=== PATIENT | male | born 1975 | race Caucasian/White ===

== ENCOUNTER 2023-02-27 | Outpatient (REF) | payer OTHER, SELFPAY ==
[2023-02-27 10:13] LABS: Cholesterol 172 mg/dL; HDL Cholesterol 31 mg/dL; LDL Cholesterol Calculated 113 mg/dl; Triglycerides 141 mg/dL
[2023-02-27 10:52] LABS: Estimated Average Glucose 232 mg/dL; Hemoglobin A1c % 9.7 %
== END 2023-02-27 00:01 | disposition home or self-care (01) ==
LOC: HO.LAB
PROVIDERS: PCP Internal Medicine; Visit Provider Registered Nurse
DX: F33.0 Major depressive disorder, recurrent, mild (principal); F41.1 Generalized anxiety disorder; Z79.899 Other long term (current) drug therapy
CPT/HCPCS: 36415; 80061; 83036

== ENCOUNTER 2023-11-11 07:48 | Outpatient (REF) | payer OTHER, SELFPAY ==
--- NOTE | ~2023-11-11 | XR_ITS ---
EXAMINATION: XR KNEE, BILATERAL CLINICAL INFORMATION: Bilateral knee pain COMPARISON: None. TECHNIQUE: 3 views of each knee FINDINGS: Medial compartment narrowing and marginal osteophyte formation of both knees. Mild patellofemoral compartment osteoarthritis bilaterally. Small bilateral knee joint effusions. No fracture or focal osseous lesion demonstrated. XR/XR knee RT 3V IMPRESSION: Mild to moderate medial compartment and mild patellofemoral compartment osteoarthritis bilaterally with small joint effusions. Degenerative findings are most prominent in the medial compartment of the left knee. No acute osseous abnormality.
--- NOTE | ~2023-11-11 | XR_ITS ---
EXAMINATION: XR KNEE, BILATERAL CLINICAL INFORMATION: Bilateral knee pain COMPARISON: None. TECHNIQUE: 3 views of each knee FINDINGS: Medial compartment narrowing and marginal osteophyte formation of both knees. Mild patellofemoral compartment osteoarthritis bilaterally. Small bilateral knee joint effusions. No fracture or focal osseous lesion demonstrated. XR/XR knee LT 3V IMPRESSION: Mild to moderate medial compartment and mild patellofemoral compartment osteoarthritis bilaterally with small joint effusions. Degenerative findings are most prominent in the medial compartment of the left knee. No acute osseous abnormality.
== END 2023-11-11 07:49 | disposition home or self-care (01) ==
LOC: HO.HOSX 07:48
PROVIDERS: Visit Provider Orthopaedic Surgery
DX: M17.0 Bilateral primary osteoarthritis of knee (principal)
CPT/HCPCS: 73562; 99202

== ENCOUNTER 2023-11-11 09:08 | Outpatient (AMB) | payer OTHER, SELFPAY ==
--- NOTE | 2023-11-11 09:11 | MHC.OFFVIS ---
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 The patient states that his knee pains have gotten worse over the last few years in spite of continued non operative treatments. He has had cortisone injections in the past which gave him no relief. He has also tried Tylenol and anti-inflammatory medicines which gave him minimal relief. He has done physical therapy which aggravated his pain. He states that his knees will both give out several times per day. Physical Exam Const Other: Well-nourished well-developed very friendly male awake alert and oriented x3 in no acute distress Extrem Other: Bilateral lower extremity examination shows good capillary refill, no skin lesions noted, normal sensation light touch Bilateral knee examination shows minimal effusions, palpable crepitus with range of motion, pain with range of motion Results Reviewed Results Reviewed: X-rays of the patient's bilateral knee show moderate diffuse joint space narrowing, no acute bony abnormalities Assessment & Plan Assessment & Plan (1) Arthritis of left knee: Code(s): M17.12 - Unilateral primary osteoarthritis, left knee (2) Arthritis of right knee: Code(s): M17.11 - Unilateral primary osteoarthritis, right knee Plan Mr. Crawford presents with bilateral knee pains and mechanical symptoms due to degenerative joint disease. I had a lengthy discussion with the patient regarding the treatment options. He wishes to hold off on surgery for as long as possible. I agree with this plan. I did have him fitted for bilateral knee braces because of his symptoms of instability. I feel that the knee braces are a medical necessity to help prevent future falls. The patient has not gotten good relief from cortisone injections in the past. Thus, I will see whether not his insurance company will cover a viscosupplementation injection for both of his knees. I will see him back once the injections are available. Feel free to call me at any time should questions regarding his orthopedic management arise. Thank you very much for asking me to see this very friendly gentleman. I spent 22 minutes in reviewing the patient's records and imaging studies, seeing the patient and documenting in the medical record. Orders: Orders XR knee LT 3V Today M25.562 - Pain in left knee XR knee RT 3V Today M25.561 - Pain in right knee Coding Level of Care Code New Pt Level 2 (04242) Diagnoses Arthritis of left knee M17.12 Arthritis of right knee M17.11
== END 2023-11-11 09:37 | disposition home or self-care (01) ==
PROVIDERS: PCP Internal Medicine; Visit Provider Orthopaedic Surgery
DX: M17.0 Bilateral primary osteoarthritis of knee (principal)
CPT/HCPCS: 99202

== ENCOUNTER 2024-02-24 06:30 | Outpatient (REF) | payer OTHER, SELFPAY ==
[2024-02-24 07:27] LABS: Estimated Average Glucose 114 mg/dL; Hemoglobin A1c % 5.6 % (<6.0)
[2024-02-24 07:46] LABS: Cholesterol 183 mg/dL (<200); HDL Cholesterol 28 mg/dL (>40); LDL Cholesterol Calculated 111 mg/dL (<100); Triglycerides 220 mg/dL (<150)
== END 2024-02-24 06:31 | disposition home or self-care (01) ==
LOC: HO.LAB 06:30
PROVIDERS: PCP Internal Medicine; Visit Provider Registered Nurse
DX: F11.21 Opioid dependence, in remission (principal); F31.9 Bipolar disorder, unspecified; Z79.899 Other long term (current) drug therapy
CPT/HCPCS: 36415; 80061; 83036